=== PATIENT | male | born 1945 | race Asian ===

== ENCOUNTER 2017-08-06 14:18 | Emergency (ER) | payer OTHER ==
[2017-08-06 14:28] VITALS: BP 143/72; BMI 46.2
[2017-08-06] MEDS ORDERED: ACETAMINOPHEN 325 MG TABLET (FP) PO ONE (14:29)
--- NOTE | 2017-08-06 14:31 | PDOC ---
Rapid Medical Evaluation Time Seen by Provider: 08/06/17 14:25 Medical Evaluation: Allergies Allergy/AdvReac Type Severity Reaction Status Date / Time apple [Apple] Allergy Itching Verified 05/03/15 09:05 No Known Drug Allergies Allergy Verified 05/03/15 09:05 tangerines Allergy Swelling Uncoded 05/03/15 09:05 I have performed a brief in-person evaluation of this patient. The patient presents with a chief complaint of: cough x 2 days Pertinent physical exam findings: fever, dry cough, expiratory wheezing right anterior field. rhonchi b/l posterior lung bases. I have ordered the following: Influenza, CXR, labs, duoneb The patient will proceed to the ED for further evaluation. Discharge Disposition - Referrals Referrals: Evans Navarro MD [Primary Care Provider] - - Patient Instructions - Post Discharge Activity
[2017-08-06 15:17] LABS: BASO % 0.4 % (0-2.0); EOS % 2.1 % (0-4.5); HEMATOCRIT 38.3 % (35.4-49); HEMOGLOBIN 12.4 GM/dL (11.7-16.9); LYMPH % 18.4 % (8-40); MCH 29.8 pg (25.7-33.7); MCHC 32.5 g/dl (32.0-35.9); MEAN CELL VOLUME 91.9 fl (80-96); MEAN PLT VOLUME 7.9 fl (7.5-11.1); MONO % 10.4 % (3.8-10.2); NEUT % 68.7 % (42.8-82.8); PLATELET COUNT 192 K/MM3 (134-434); RBC 4.16 M/mm3 (4.00-5.60); RDW 13.9 % (11.9-15.9); WHITE BLOOD COUNT 7.5 K/mm3 (4.0-10.0)
[2017-08-06 15:57] LABS: ALBUMIN 3.7 g/dl (3.4-5.0); ANION GAP 11 (8-16); BLOOD UREA NITROGEN 13 mg/dL (7-18); CALCIUM 8.2 mg/dL (8.5-10.1); CHLORIDE 97 mmol/L (98-107); CO2 24 mmol/L (21-32); CREATININE 1.2 mg/dL (0.7-1.3); GLUCOSE,RANDOM 252 mg/dL (74-106); POTASSIUM 4.4 mmol/L (3.5-5.1); SGOT/AST 25 U/L (15-37); SGPT/ALT 28 U/L (12-78); SODIUM 132 mmol/L (136-145)
[2017-08-06 15:58] LABS: ALK PHOS 71 U/L (45-117); BILIRUBIN,TOTAL 1.2 mg/dL (0.2-1.0)
[2017-08-06] MEDS: ALBUTEROL SO4 2.5/IPRATROPIUM 0.5 INH SOL 3 ML VIAL.NEB. NEB SCH ×4 (18:00→22:08)
[2017-08-06] MEDS ORDERED: ALBUTEROL SO4 2.5/IPRATROPIUM 0.5 INH SOL 3 ML VIAL.NEB. NEB ONE (18:43)
[2017-08-06 18:54] VITALS: PULSE 82
[2017-08-06] MEDS ORDERED: SODIUM CHLORIDE 1,000 ML IV STA ×2 (19:28→22:51)
[2017-08-06] MEDS ORDERED: CEFTRIAXONE 1 GM in DEXTROSE 5%-WATER - 100 ML IVPB ONE (19:29)
--- NOTE | 2017-08-06 19:38 | PDOC ---
History of Present Illness - General Chief Complaint: Respiratory Stated Complaint: COUGH Time Seen by Provider: 08/06/17 14:25 History Source: Patient - History of Present Illness Initial Comments: 08/06/17 21:17 72-year-old male complaining of chest congestion, fever, cough and wheezing for 3 days. Patient has a past medical history of diabetes. as per patient one week ago completed a Z-Celestine for similar symptoms and throat pain. Denies chest pain, diaphoresis, dizziness, nausea, vomiting, diarrhea, abdominal pain, urinary symptoms.no sick contact. Past History - Past Medical History Allergies/Adverse Reactions: Allergies Allergy/AdvReac Type Severity Reaction Status Date / Time apple [Apple] Allergy Itching Verified 08/06/17 14:28 No Known Drug Allergies Allergy Verified 08/06/17 14:28 tangerines Allergy Swelling Uncoded 08/06/17 14:28 Home Medications: Ambulatory Orders Aspirin [ASA -] 81 mg PO DAILY 09/20/13 Atorvastatin Ca [Lipitor] 20 mg PO HS 09/20/13 Glyburide/Metformin HCl [Glyburide-Metformin 5-500 mg] 1 each PO HS 09/20/13 Levothyroxine [Synthroid -] 100 mcg PO DAILY 09/20/13 Lisinopril [Prinivil] 10 mg PO DAILY 09/20/13 Sitagliptin Phosphate [Januvia] 100 mg PO HS 09/20/13 Azithromycin 250 mg PO DAILY #4 tablet 05/03/15 Albuterol Sulfate Inhaler - [Ventolin HFA Inhaler -] 1 - 2 inh PO Q4H PRN #1 inhaler 08/07/17 Amoxicillin/Potassium Clav [Augmentin 875-125 Tablet] 1 each PO BID #20 tablet 08/07/17 Anemia: No Asthma: No Cancer: No Cardiac Disorders: No CVA: No COPD: No CHF: No Dementia: No Diabetes: Yes GI Disorders: No Disorders: No HTN: Yes Hypercholesterolemia: Yes Liver Disease: No Seizures: No Thyroid Disease: No - Surgical History Abdominal Surgery: Yes (INGUINAL HERNIA REPAIR) Appendectomy: No Cardiac Surgery: No Cholecystectomy: No Lung Surgery: No Neurologic Surgery: No Orthopedic Surgery: Yes (LEFT SHOULDER ARTHROSCOPY 2010) - Suicide/Smoking/Psychosocial Hx Smoking History: Never smoked Have you smoked in the past 12 months: No Hx Alcohol Use: No Drug/Substance Use Hx: No Substance Use Type: None Hx Substance Use Treatment: No Review of Systems - Review of Systems Able to Perform ROS?: Yes Is the patient limited [place] proficient: No Constitutional: Yes: Fever Respiratory: Yes: Cough, Wheezing, Productive cough *Physical Exam - Vital Signs Last Vital Signs Temp Pulse Resp BP Pulse Ox 101.0 F H 82 20 143/72 100 08/06/17 14:23 08/06/17 18:30 08/06/17 14:23 08/06/17 14:23 08/06/17 18:30 - Physical Exam General Appearance: Yes: Appropriately Dressed Respiratory/Chest: positive: Rales, Rhonchi Cardiovascular: positive: Tachycardia Gastrointestinal/Abdominal: positive: Normal Bowel Sounds, Soft Extremity: positive: Normal Capillary Refill, Normal Inspection, Normal Range of Motion Integumentary: positive: Normal Color, Dry, Warm Neurologic: positive: Fully Oriented, Alert, Normal Mood/Affect Heart Score/ECG Review - History History: Slightly suspicious - Electrocardiogram EKG: Normal - Age Age: >/= 65 - Risk Factors Risk Factors Heart Score: Yes Hx Diabetes Based on the list above the patient has:: 1-2 risk factors - Troponin Troponin: </= normal limit - Score Heart Score - Total: 3 - ECG Intrepretation Rhythm: Regular Rhythm Comment:: 08/06/17 22:54 NSR: 95, right bundle branch block. ED Treatment Course - LABORATORY CBC & Chemistry Diagram: 08/06/17 15:00 08/06/17 19:42 - ADDITIONAL ORDERS Additional order review: Laboratory Results 08/06/17 08/06/17 15:00 15:00 Sodium 132 L Potassium 4.4 Chloride 97 L Carbon Dioxide 24 Anion Gap 11 BUN 13 Creatinine 1.2 D Creat Clearance w eGFR 59.18 Random Glucose 252 H D Lactic Acid 2.3 H* Calcium 8.2 L Total Bilirubin 1.2 H AST 25 D ALT 28 Alkaline Phosphatase 71 Total Protein 7.0 Albumin 3.7 08/06/17 14:30 Influenza Types A,B Antigen (REAL) - Final Nasopharyngeal Swab - Final 08/06/17 15:00 RBC 4.16 MCV 91.9 MCHC 32.5 RDW 13.9 MPV 7.9 Neutrophils % 68.7 Lymphocytes % 18.4 D Monocytes % 10.4 H Eosinophils % 2.1 Basophils % 0.4 - Medications Given in the ED: ED Medications Discontinued Medications Generic Name Dose Route Start Last Admin Trade Name Freq PRN Reason Stop Dose Admin Acetaminophen 650 mg 08/06/17 14:29 08/06/17 14:32 Tylenol - PO 08/06/17 14:30 650 mg ONCE ONE Administration Albuterol/Ipratropium 1 amp 08/06/17 14:45 08/06/17 18:51 Duoneb - NEB 08/06/17 15:31 1 amp Q15M DANIELLE Administration Progress Note - Progress Note Progress Note: A: fever/ bronchitis, elevated lactic acid CBC CMP Blood culture ua urine culture chest xray: increased marking. Medical Decision Making - Medical Decision Making 08/06/17 23:07 Repeat LActic acidosis: 2.4 will start IVF and reevaluate. 08/07/17 01:26 lactic acidosis repeated : 2.0. will dc/ home. *DC/Admit/Observation/Transfer Diagnosis at time of Disposition: Bronchitis, Lactic acidosis - Discharge Dispostion Disposition: HOME - Prescriptions Prescriptions: Albuterol Sulfate Inhaler - [Ventolin HFA Inhaler -] 1 - 2 inh PO Q4H PRN #1 inhaler PRN Reason: Wheezing Amoxicillin/Potassium Clav [Augmentin 875-125 Tablet] 1 each PO BID #20 tablet - Referrals Referrals: Evans Navarro MD [Primary Care Provider] - - Patient Instructions Printed Discharge Instructions: DI for Acute Bronchitis Additional Instructions: follow up with your doctor as soon as possible. take albuterol IH every 6 hours as needed for cough and wheezing take augmentin as prescribed. follow up with your doctor as soon as possible. return to the ER if symptoms worsen. - Post Discharge Activity
[2017-08-06] MEDS ORDERED: CEFTRIAXONE 1 GM/50 ML BAG ONE (19:55)
[2017-08-06] MEDS ORDERED: IBUPROFEN 600 MG TABLET (FP) PO ONE ×2 (19:57→19:58)
[2017-08-06 19:59] LABS: VENOUS PC02 52.7 mmHg (38-52); VENOUS PH 7.31 (7.32-7.42); VENOUS PO2 21.7 mmHg (28-48)
--- NOTE | 2017-08-06 20:13 | PDOC ---
*Physical Exam - Vital Signs Last Vital Signs Temp Pulse Resp BP Pulse Ox 101.0 F H 82 20 143/72 100 08/06/17 14:23 08/06/17 18:30 08/06/17 14:23 08/06/17 14:23 08/06/17 18:30 ED Treatment Course - LABORATORY CBC & Chemistry Diagram: 08/06/17 15:00 08/06/17 19:42 - ADDITIONAL ORDERS Additional order review: Laboratory Results 08/06/17 08/06/17 08/06/17 19:40 15:00 15:00 VBG pH 7.31 L POC VBG pCO2 52.7 H POC VBG pO2 21.7 L Mixed VBG HCO3 26.0 H Sodium 132 L Potassium 4.4 Chloride 97 L Carbon Dioxide 24 Anion Gap 11 BUN 13 Creatinine 1.2 D Creat Clearance w eGFR 59.18 Random Glucose 252 H D Lactic Acid 2.3 H* Calcium 8.2 L Total Bilirubin 1.2 H AST 25 D ALT 28 Alkaline Phosphatase 71 Total Protein 7.0 Albumin 3.7 08/06/17 14:30 Influenza Types A,B Antigen (REAL) - Final Nasopharyngeal Swab - Final 08/06/17 15:00 RBC 4.16 MCV 91.9 MCHC 32.5 RDW 13.9 MPV 7.9 Neutrophils % 68.7 Lymphocytes % 18.4 D Monocytes % 10.4 H Eosinophils % 2.1 Basophils % 0.4 - Medications Given in the ED: ED Medications Discontinued Medications Generic Name Dose Route Start Last Admin Trade Name Freq PRN Reason Stop Dose Admin Acetaminophen 650 mg 08/06/17 14:29 08/06/17 14:32 Tylenol - PO 08/06/17 14:30 650 mg ONCE ONE Administration Albuterol/Ipratropium 1 amp 08/06/17 14:45 08/06/17 18:51 Duoneb - NEB 08/06/17 15:31 1 amp Q15M DANIELLE Administration Ceftriaxone Sodium 1 gm/ 100 mls @ 200 mls/hr 08/06/17 19:29 08/06/17 20:05 Dextrose IVPB 08/06/17 19:58 200 mls/hr ONCE ONE Administration Medical Decision Making - Medical Decision Making 08/06/17 20:12 agree with care from ENEDINA Trevizo *DC/Admit/Observation/Transfer Diagnosis at time of Disposition: Bronchitis, Lactic acidosis - Discharge Dispostion Disposition: HOME - Prescriptions Prescriptions: Albuterol Sulfate Inhaler - [Ventolin HFA Inhaler -] 1 - 2 inh PO Q4H PRN #1 inhaler PRN Reason: Wheezing Amoxicillin/Potassium Clav [Augmentin 875-125 Tablet] 1 each PO BID #20 tablet - Referrals Referrals: Evans Navarro MD [Primary Care Provider] - - Patient Instructions Printed Discharge Instructions: DI for Acute Bronchitis Additional Instructions: follow up with your doctor as soon as possible. take albuterol IH every 6 hours as needed for cough and wheezing take augmentin as prescribed. follow up with your doctor as soon as possible. return to the ER if symptoms worsen. - Post Discharge Activity
[2017-08-06 20:15] LABS: INR 1.14 (0.82-1.09); PROTHROMBIN TIME (PATIENT) 12.9 SEC (9.98-11.88)
[2017-08-06 20:16] LABS: ALBUMIN 4.2 g/dl (3.4-5.0); ANION GAP 10 (8-16); BILIRUBIN,TOTAL 1.2 mg/dL (0.2-1.0); BLOOD UREA NITROGEN 13 mg/dL (7-18); CALCIUM 8.5 mg/dL (8.5-10.1); CHLORIDE 98 mmol/L (98-107); CO2 25 mmol/L (21-32); CREATININE 1.1 mg/dL (0.7-1.3); GLUCOSE,RANDOM 138 mg/dL (74-106); POTASSIUM 3.6 mmol/L (3.5-5.1); SGOT/AST 24 U/L (15-37); SGPT/ALT 33 U/L (12-78); SODIUM 133 mmol/L (136-145)
[2017-08-06 20:18] LABS: ACTIVATED PTT 31.3 SECONDS (26.9-34.4)
[2017-08-06 20:19] LABS: ALK PHOS 79 U/L (45-117)
[2017-08-06 20:50] VITALS: TEMP 100.1
[2017-08-07] MEDS ORDERED: ALBUTEROL SO4 2.5/IPRATROPIUM 0.5 INH SOL 3 ML VIAL.NEB. NEB ONE (01:02)
--- NOTE | 2017-08-07 12:30 | EKG ---
Test Reason : Blood Pressure : / mmHG Vent. Rate : 093 BPM Atrial Rate : 093 BPM P-R Int : 184 ms QRS Dur : 124 ms QT Int : 374 ms P-R-T Axes : 053 -33 050 degrees QTc Int : 465 ms NORMAL SINUS RHYTHM LEFT AXIS DEVIATION RIGHT BUNDLE BRANCH BLOCK ABNORMAL ECG WHEN COMPARED WITH ECG OF 03-MAY-2015 09:29, RIGHT BUNDLE BRANCH BLOCK IS NOW PRESENT Confirmed by DAVID NOE MD ([id number]) on 08/07/2017 12:30:01 PM Referred By: Confirmed By:DAVID NOE MD
== END 2017-08-07 01:00 | disposition home or self-care (01) ==
LOC: JER 14:18
PROC: 3E0F7GC Introduction of Other Therapeutic Substance into Respiratory Tract, Via Natural or Artificial Opening (ICD-10-PCS; principal; 2017-08-06)
PROC: 3E0337Z Introduction of Electrolytic and Water Balance Substance into Peripheral Vein, Percutaneous Approach (ICD-10-PCS; 2017-08-06)
PROC: 3E03329 Introduction of Other Anti-infective into Peripheral Vein, Percutaneous Approach (ICD-10-PCS; 2017-08-06)
DX: J20.9 Acute bronchitis, unspecified (principal); E87.2 Acidosis
CPT/HCPCS: 36415; 71046-TC; 80053; 82550; 82553; 82803; 83605; 84484; 85025; 85610; 85730; 87040; 87804; 93005; 93010; 99284-25

== ENCOUNTER 2018-05-03 20:41 | Emergency (ER) | payer OTHER ==
[2018-05-03 21:12] VITALS: BP 136/66; PULSE 72; BMI 23.0
[2018-05-04 00:38] LABS: BASO % 0.3 % (0-2.0); EOS % 2.2 % (0-4.5); HEMATOCRIT 39.5 % (35.4-49); HEMOGLOBIN 13.1 GM/dL (11.7-16.9); LYMPH % 37.4 % (8-40); MCH 30.6 pg (25.7-33.7); MCHC 33.2 g/dl (32.0-35.9); MEAN CELL VOLUME 92.3 fl (80-96); MEAN PLT VOLUME 7.6 fl (7.5-11.1); NEUT % 54.1 % (42.8-82.8); PLATELET COUNT 232 K/MM3 (134-434); RBC 4.28 M/mm3 (4.00-5.60); RDW 13.7 % (11.9-15.9)
--- NOTE | 2018-05-04 00:52 | PDOC ---
Attending Attestation - Resident Resident Name: Reese Ledezma - ED Attending Attestation I have performed the following: I have examined & evaluated the patient, The case was reviewed & discussed with the resident, I agree w/resident's findings & plan - HPI HPI: 05/04/18 00:51 Pt comes with BP elevation. That he noted for the past 2 days. He was on one of his daily walks 3 miles, and stopped at the pharmacy and his BP was elevated. 05/04/18 01:44 Pt states that he was at a frien'd home and he felt like he has high BP; BP was 180s. Pt appears flushed; he states that his friend was telling him the same. - Physicial Exam PE: 05/04/18 00:52 Agree with resident's assessment and exam. - Medical Decision Making 05/04/18 00:57 WBC is normal 05/04/18 01:45 Cardiac enzymes normal. I will add on TSH; pt is on synthroid 05/04/18 06:37 Pt will be asked to follow with outpatient cardio Heart Score/ECG Review - History History: Slightly suspicious - Age Age: >/= 65 - Risk Factors Risk Factors Heart Score: Yes Hx Hypertension, Yes Positive family hx of cardiac disease Based on the list above the patient has:: >/=3 risk factors or Hx atherosclerotic disease - Troponin Troponin: </= normal limit - QRS Widened: IVCD (LAFB) - ST and T Early Repolarization: No Non Specific ST-T Wave changes: No - ECG Impressions Normal ECG: Yes Non-specific ST Elevation: No Ischemic Changes: No
[2018-05-04 01:08] LABS: ALBUMIN 4.1 g/dl (3.4-5.0); ALK PHOS 68 U/L (45-117); ANION GAP 7 MMOL/L (8-16); BILIRUBIN,TOTAL 0.9 mg/dL (0.2-1); BLOOD UREA NITROGEN 18 mg/dL (7-18); CHLORIDE 102 mmol/L (98-107); CO2 29 mmol/L (21-32); CREATININE 0.9 mg/dL (0.55-1.3); GLUCOSE,RANDOM 133 mg/dL (74-106); POTASSIUM 4.5 mmol/L (3.5-5.1); SGOT/AST 25 U/L (15-37); SGPT/ALT 31 U/L (13-61); SODIUM 138 mmol/L (136-145); TOT PROT 7.6 g/dl (6.4-8.2)
--- NOTE | 2018-05-04 01:45 | PDOC ---
History of Present Illness - General Chief Complaint: Blood Pressure Problem Stated Complaint: HIGH BLOOD PRESSURE/SWEATING Time Seen by Provider: 05/03/18 23:49 History Source: Patient Exam Limitations: No Limitations - History of Present Illness Initial Comments: 05/04/18 01:42 72m with pmf of DM2 and htn presents with episode diaphoresis ealier today. After it happened the patient went to check his blood pressure which happened to be elevated in the 180's. Come to the Ed where it was found to be normal. No other complains, Past History - Past Medical History Allergies/Adverse Reactions: Allergies Allergy/AdvReac Type Severity Reaction Status Date / Time apple [Apple] Allergy Itching Verified 05/03/18 21:10 No Known Drug Allergies Allergy Verified 05/03/18 21:10 tangerines Allergy Swelling Uncoded 05/03/18 21:10 Home Medications: Ambulatory Orders Aspirin [ASA -] 81 mg PO DAILY 09/20/13 Atorvastatin Ca [Lipitor] 20 mg PO HS 09/20/13 Glyburide/Metformin HCl [Glyburide-Metformin 5-500 mg] 1 each PO HS 09/20/13 Levothyroxine [Synthroid -] 100 mcg PO DAILY 09/20/13 Lisinopril [Prinivil] 10 mg PO DAILY 09/20/13 Sitagliptin Phosphate [Januvia] 100 mg PO HS 09/20/13 Azithromycin 250 mg PO DAILY #4 tablet 05/03/15 Albuterol Sulfate Inhaler - [Ventolin HFA Inhaler -] 1 - 2 inh PO Q4H PRN #1 inhaler 08/07/17 Amoxicillin/Potassium Clav [Augmentin 875-125 Tablet] 1 each PO BID #20 tablet 08/07/17 Anemia: No Asthma: No Cancer: No Cardiac Disorders: No CVA: No COPD: No CHF: No Dementia: No Diabetes: Yes GI Disorders: No Disorders: No HTN: Yes Hypercholesterolemia: Yes Liver Disease: No Seizures: No Thyroid Disease: No - Surgical History Abdominal Surgery: Yes (INGUINAL HERNIA REPAIR) Appendectomy: No Cardiac Surgery: No Cholecystectomy: No Lung Surgery: No Neurologic Surgery: No Orthopedic Surgery: Yes (LEFT SHOULDER ARTHROSCOPY 2010) - Suicide/Smoking/Psychosocial Hx Smoking History: Never smoked Have you smoked in the past 12 months: No Hx Alcohol Use: No Drug/Substance Use Hx: No Substance Use Type: None Hx Substance Use Treatment: No *Physical Exam - Vital Signs Last Vital Signs Temp Pulse Resp BP Pulse Ox 98 F 72 18 136/66 99 05/03/18 21:10 05/03/18 21:10 05/03/18 21:10 05/03/18 21:10 05/03/18 21:10 ED Treatment Course - LABORATORY CBC & Chemistry Diagram: 05/04/18 00:30 05/04/18 00:30 - ADDITIONAL ORDERS Additional order review: Laboratory Results 05/04/18 05/04/18 00:30 00:30 Sodium 138 Potassium 4.5 Chloride 102 Carbon Dioxide 29 Anion Gap 7 L BUN 18 Creatinine 0.9 Creat Clearance w eGFR > 60 Random Glucose 133 H Calcium 9.0 Total Bilirubin 0.9 AST 25 ALT 31 Alkaline Phosphatase 68 Troponin I < 0.02 Total Protein 7.6 Albumin 4.1 05/04/18 00:30 RBC 4.28 MCV 92.3 MCHC 33.2 RDW 13.7 MPV 7.6 Neutrophils % 54.1 D Lymphocytes % 37.4 D Monocytes % 6.0 Eosinophils % 2.2 Basophils % 0.3 - RADIOLOGY Radiology Studies Ordered: Category Date Time Status CHEST PA & LAT [RAD] Stat Radiology 05/04/18 00:16 Taken *DC/Admit/Observation/Transfer Diagnosis at time of Disposition: Bifascicular block - Discharge Dispostion Disposition: HOME Condition at time of disposition: Fair Decision to Admit order: No - Referrals Referrals: Evans Navarro MD [Primary Care Provider] - Cesar Fernandez MD [Staff Physician] - - Patient Instructions Printed Discharge Instructions: DI for Heart Block Additional Instructions: Follow up ishmael with your cardiovascular disease specialist Dr. Fernandez.. Come back to the ER for any new, worsening or concerning symptoms. - Post Discharge Activity
[2018-05-04 02:08] VITALS: TEMP 97.6
--- NOTE | 2018-05-04 02:32 | PDOC ---
*Physical Exam - Vital Signs Last Vital Signs Temp Pulse Resp BP Pulse Ox 97.6 F 72 18 136/66 99 05/04/18 02:07 05/03/18 21:10 05/03/18 21:10 05/03/18 21:10 05/03/18 21:10 ED Treatment Course - LABORATORY CBC & Chemistry Diagram: 05/04/18 00:30 05/04/18 00:30 - ADDITIONAL ORDERS Additional order review: Laboratory Results 05/04/18 05/04/18 00:30 00:30 Sodium 138 Potassium 4.5 Chloride 102 Carbon Dioxide 29 Anion Gap 7 L BUN 18 Creatinine 0.9 Creat Clearance w eGFR > 60 Random Glucose 133 H Calcium 9.0 Total Bilirubin 0.9 AST 25 ALT 31 Alkaline Phosphatase 68 Troponin I < 0.02 Total Protein 7.6 Albumin 4.1 TSH 0.99 Free T4 1.21 H 05/04/18 00:30 RBC 4.28 MCV 92.3 MCHC 33.2 RDW 13.7 MPV 7.6 Neutrophils % 54.1 D Lymphocytes % 37.4 D Monocytes % 6.0 Eosinophils % 2.2 Basophils % 0.3 - RADIOLOGY Radiology Studies Ordered: Category Date Time Status CHEST PA & LAT [RAD] Stat Radiology 05/04/18 00:16 Taken Medical Decision Making - Medical Decision Making 05/04/18 02:32 EKG: New onset Bifascicular block *DC/Admit/Observation/Transfer Diagnosis at time of Disposition: Bifascicular block - Discharge Dispostion Disposition: HOME Condition at time of disposition: Fair - Referrals Referrals: Cesar Fernandez MD [Staff Physician] - Evans Navarro MD [Primary Care Provider] - - Patient Instructions Printed Discharge Instructions: DI for Heart Block Additional Instructions: Follow up ishmael with your industrial relations representative Dr. Fernandez.. Come back to the ER for any new, worsening or concerning symptoms. - Post Discharge Activity
--- NOTE | 2018-05-05 10:46 | EKG ---
Test Reason : Blood Pressure : / mmHG Vent. Rate : 062 BPM Atrial Rate : 062 BPM P-R Int : 206 ms QRS Dur : 124 ms QT Int : 418 ms P-R-T Axes : 055 -50 036 degrees QTc Int : 424 ms NORMAL SINUS RHYTHM RIGHT BUNDLE BRANCH BLOCK LEFT ANTERIOR FASCICULAR BLOCK BIFASCICULAR BLOCK ABNORMAL ECG WHEN COMPARED WITH ECG OF 06-AUG-2017 21:28, VENT. RATE HAS DECREASED BY 31 BPM LEFT ANTERIOR FASCICULAR BLOCK IS NOW PRESENT Confirmed by Griffin Chaudhary MD ([id number]) on 05/05/2018 10:46:29 AM Referred By: Confirmed By:Griffin Chaudhary MD
== END 2018-05-04 02:40 | disposition home or self-care (01) ==
LOC: JER 20:41
DX: I45.2 Bifascicular block (principal); I10 Essential (primary) hypertension; E11.9 Type 2 diabetes mellitus without complications; Z79.84 Long term (current) use of oral hypoglycemic drugs; E78.00 Pure hypercholesterolemia, unspecified
CPT/HCPCS: 36415; 71046-TC-FY; 80053; 84439; 84443; 84484; 85025; 93005; 93010; 99282-25

== ENCOUNTER 2022-05-05 07:24 | Inpatient (IN) | payer OTHER ==
[2022-05-05] MEDS ORDERED: ONDANSETRON 4 MG/2 ML VIAL IVPUSH ONE (08:01)
[2022-05-05] MEDS ORDERED: ACETAMINOPHEN 1000 MG/100 ML BAG IVPB ONE (08:01)
[2022-05-05] MEDS ORDERED: ONDANSETRON 4 MG/2 ML VIAL ONE (08:03)
[2022-05-05] MEDS ORDERED: ACETAMINOPHEN INJECTION 100 ML IVPB ONE (08:03)
[2022-05-05 08:38] LABS: BASO % 0.3 % (0-2.0); EOS % 2.3 % (0-4.5); HEMATOCRIT 37.9 % (35.4-49); HEMOGLOBIN 12.8 GM/dL (11.7-16.9); LYMPH % 30.3 % (8-40); MCH 31.2 pg (25.7-33.7); MCHC 33.7 g/dl (32.0-35.9); MEAN CELL VOLUME 92.5 fl (80-96); MEAN PLT VOLUME 7.2 fl (7.5-11.1); MONO % 7.5 % (3.8-10.2); NEUT % 59.6 % (42.8-82.8); PLATELET COUNT 260 10^3/uL (134-434); RDW 14.3 % (11.9-15.9); WHITE BLOOD COUNT 8.3 K/mm3 (4.0-10.0)
[2022-05-05 08:43] LABS: INR 1.09 (0.83-1.09); PROTHROMBIN TIME (PATIENT) 12.6 SEC (9.7-13.0)
[2022-05-05 08:46] LABS: ACTIVATED PTT 29.8 SECONDS (25.2-36.5)
[2022-05-05 09:04] LABS: ALBUMIN 3.9 g/dl (3.4-5.0); CALCIUM 9.1 mg/dL (8.5-10.1)
[2022-05-05 09:06] LABS: BLOOD UREA NITROGEN 19.3 mg/dL (7-18)
[2022-05-05 09:08] LABS: CREATININE 1.1 mg/dL (0.55-1.3)
[2022-05-05 09:09] LABS: BILIRUBIN,TOTAL 0.6 mg/dL (0.2-1); TOT PROT 7.1 g/dl (6.4-8.2)
[2022-05-05 13:01] LABS: N-TERMINAL BNP 34.3 pg/ml (5-450)
[2022-05-05] MEDS ORDERED: ACETAMINOPHEN 1000 MG/100 ML BAG IVPB PRN (16:16)
[2022-05-05] MEDS ORDERED: ONDANSETRON 4 MG/2 ML VIAL IVPUSH PRN (16:16)
[2022-05-05] MEDS ORDERED: INSULIN (NOVOLOG) ASPART 100 UNITS/ML 10ML VIAL ONE (17:42)
[2022-05-05] MEDS: INSULIN SLIDING SCALE (NOVOLOG) 1 VIAL SQ SCH ×2 (17:45→21:37)
[2022-05-05] MEDS: DEXTROSE 5%-0.45% SALINE 1,000 ML IV SCH (17:46)
[2022-05-05 18:16] VITALS: BMI 21.7
[2022-05-05] MEDS: NEBIVOLOL 5 MG TABLET (FP) PO SCH (21:32)
[2022-05-05] MEDS: ATORVASTATIN CA 20 MG TABLET (FP) PO SCH (21:33)
[2022-05-06] MEDS: LEVOTHYROXINE NA 75 MCG TABLET (FP) PO SCH (06:20)
[2022-05-06] MEDS: INSULIN SLIDING SCALE (NOVOLOG) 1 VIAL SQ SCH ×4 (06:25→22:09)
[2022-05-06] MEDS ORDERED: LEVOTHYROXINE NA 75 MCG TABLET (FP) PO SCH (07:00)
[2022-05-06] MEDS ORDERED: LEVOTHYROXINE NA 100 MCG TABLET (FP) PO SCH (07:00)
[2022-05-06] MEDS: DEXTROSE 5%-0.45% SALINE 1,000 ML IV SCH ×3 (08:00→19:06)
[2022-05-06 08:32] LABS: BASO % 0.3 % (0-2.0); EOS % 2.6 % (0-4.5); HEMATOCRIT 39.8 % (35.4-49); HEMOGLOBIN 12.9 GM/dL (11.7-16.9); LYMPH % 34.5 % (8-40); MCH 29.9 pg (25.7-33.7); MCHC 32.4 g/dl (32.0-35.9); MEAN CELL VOLUME 92.3 fl (80-96); MEAN PLT VOLUME 7.6 fl (7.5-11.1); MONO % 6.8 % (3.8-10.2); NEUT % 55.8 % (42.8-82.8); PLATELET COUNT 296 10^3/uL (134-434); RDW 13.9 % (11.9-15.9); WHITE BLOOD COUNT 7.4 K/mm3 (4.0-10.0)
[2022-05-06 08:57] LABS: BLOOD UREA NITROGEN 10.7 mg/dL (7-18); CALCIUM 8.8 mg/dL (8.5-10.1)
[2022-05-06 08:58] LABS: ALBUMIN 3.5 g/dl (3.4-5.0)
[2022-05-06] MEDS: NEBIVOLOL 5 MG TABLET (FP) PO SCH (08:59)
[2022-05-06 09:03] LABS: BILIRUBIN,TOTAL 1.5 mg/dL (0.2-1); TOT PROT 6.8 g/dl (6.4-8.2)
[2022-05-06] MEDS: LISINOPRIL 10 MG TABLET PO SCH (09:56)
[2022-05-06] MEDS ORDERED: ENOXAPARIN NA (PORCINE) 40 MG/0.4 ML DISP.SYRIN SQ SCH (10:00)
[2022-05-06] MEDS ORDERED: ASPIRIN 81 MG CHEWABLE TABLETS PO SCH (10:00)
[2022-05-06] MEDS ORDERED: INSULIN (NOVOLOG) ASPART 100 UNITS/ML 10ML VIAL ONE (11:31)
[2022-05-06] MEDS: ATORVASTATIN CA 20 MG TABLET (FP) PO SCH (22:07)
[2022-05-07] MEDS: INSULIN SLIDING SCALE (NOVOLOG) 1 VIAL SQ SCH ×4 (07:08→21:34)
[2022-05-07] MEDS: LEVOTHYROXINE NA 75 MCG TABLET (FP) PO SCH (07:09)
[2022-05-07 08:56] LABS: BASO % 0.5 % (0-2.0); HEMATOCRIT 36.4 % (35.4-49); HEMOGLOBIN 12.4 GM/dL (11.7-16.9); LYMPH % 31.2 % (8-40); MCH 31.3 pg (25.7-33.7); MEAN CELL VOLUME 92.2 fl (80-96); MEAN PLT VOLUME 7.2 fl (7.5-11.1); MONO % 8.6 % (3.8-10.2); NEUT % 56.7 % (42.8-82.8); PLATELET COUNT 262 10^3/uL (134-434); RBC 3.94 M/mm3 (4.00-5.60); RDW 13.9 % (11.9-15.9); WHITE BLOOD COUNT 6.9 K/mm3 (4.0-10.0)
[2022-05-07] MEDS: DEXTROSE 5%-0.45% SALINE 1,000 ML IV SCH (09:17)
[2022-05-07 09:27] LABS: ALBUMIN 3.4 g/dl (3.4-5.0); BLOOD UREA NITROGEN 7.7 mg/dL (7-18); CALCIUM 8.9 mg/dL (8.5-10.1)
[2022-05-07 09:31] LABS: BILIRUBIN,TOTAL 1.3 mg/dL (0.2-1); TOT PROT 6.4 g/dl (6.4-8.2)
[2022-05-07] MEDS: NEBIVOLOL 5 MG TABLET (FP) PO SCH (09:56)
[2022-05-07] MEDS: LISINOPRIL 10 MG TABLET PO SCH (09:56)
[2022-05-07] MEDS ORDERED: MIDAZOLAM HCL 2 MG/2 ML SINGLE DOSE VIAL ONE (12:16)
[2022-05-07] MEDS ORDERED: BUPIVACAINE HCL/PF 0.5% (5MG/ML) 10 ML VIAL ONE (12:23)
[2022-05-07] MEDS ORDERED: ceFAZolin SODIUM 1 GM VIAL IVPB ONE (12:55)
[2022-05-07] MEDS ORDERED: NEOSTIGMINE METHYLSULFATE 0.5 MG/ML - 10 ML MDV ONE (14:11)
[2022-05-07] MEDS ORDERED: ONDANSETRON 4 MG/2 ML VIAL ONE (14:11)
[2022-05-07] MEDS ORDERED: KETOROLAC TROMETHAMINE 30 MG/1 ML VIAL ONE (14:11)
[2022-05-07] MEDS ORDERED: GLYCOPYRROLATE 0.2 MG/1 ML VIAL ONE (14:11)
[2022-05-07] MEDS ORDERED: LIDOCAINE HCL/PF (2%) 40 MG/2 ML VIAL ONE (14:11)
[2022-05-07] MEDS ORDERED: ceFAZolin SODIUM 1 GM VIAL ONE (14:11)
[2022-05-07] MEDS ORDERED: BUPIVACAINE HCL/PF 0.5% (5 MG/ML) 30 ML VIAL IJ ONE (14:12)
[2022-05-07] MEDS ORDERED: DEXTROSE 5%-0.45% SALINE 1,000 ML IV SCH (14:44)
[2022-05-07] MEDS ORDERED: ONDANSETRON 4 MG/2 ML VIAL IVPUSH PRN ×2 (14:44→14:52)
[2022-05-07] MEDS ORDERED: traMADol HCL 50 MG TABLET PO PRN (14:44)
[2022-05-07] MEDS ORDERED: LACTATED RINGERS SOLUTION 1,000 ML IV SCH (15:00)
[2022-05-07] MEDS: ACETAMINOPHEN 1000 MG/100 ML BAG IVPB SCH (21:26)
[2022-05-07] MEDS ORDERED: ATORVASTATIN CA 20 MG TABLET (FP) PO SCH (22:00)
[2022-05-08] MEDS: ACETAMINOPHEN 1000 MG/100 ML BAG IVPB SCH ×2 (02:33→09:23)
[2022-05-08] MEDS: INSULIN SLIDING SCALE (NOVOLOG) 1 VIAL SQ SCH ×2 (06:21→11:41)
[2022-05-08] MEDS ORDERED: LEVOTHYROXINE NA 75 MCG TABLET (FP) PO SCH (07:00)
[2022-05-08 09:24] VITALS: RESP 18
[2022-05-08] MEDS ORDERED: NEBIVOLOL 5 MG TABLET (FP) PO SCH (10:00)
[2022-05-08] MEDS ORDERED: LISINOPRIL 10 MG TABLET PO SCH (10:00)
[2022-05-08 10:39] LABS: BASO % 0.3 % (0-2.0); EOS % 1.2 % (0-4.5); HEMATOCRIT 38.9 % (35.4-49); HEMOGLOBIN 12.5 GM/dL (11.7-16.9); LYMPH % 27.4 % (8-40); MCH 29.8 pg (25.7-33.7); MEAN CELL VOLUME 93.2 fl (80-96); MEAN PLT VOLUME 7.5 fl (7.5-11.1); MONO % 7.4 % (3.8-10.2); NEUT % 63.7 % (42.8-82.8); PLATELET COUNT 270 10^3/uL (134-434); RBC 4.17 M/mm3 (4.00-5.60); RDW 14.2 % (11.9-15.9); WHITE BLOOD COUNT 10.3 K/mm3 (4.0-10.0)
[2022-05-08 11:03] LABS: ALBUMIN 3.5 g/dl (3.4-5.0); BLOOD UREA NITROGEN 11.4 mg/dL (7-18); CALCIUM 8.8 mg/dL (8.5-10.1)
[2022-05-08 11:06] LABS: CREATININE 1.1 mg/dL (0.55-1.3)
[2022-05-08 11:08] LABS: BILIRUBIN,TOTAL 2.1 mg/dL (0.2-1); TOT PROT 6.8 g/dl (6.4-8.2)
[2022-05-08 14:56] VITALS: BP 158/72; PULSE 61; TEMP 98.6
== END 2022-05-08 15:10 | disposition home or self-care (01) | DRG 419 ==
LOC: JER 07:24 → JERBED 10:19 → J8W 16:33
PROVIDERS: ADMIT Family Medicine; ATTEND Family Medicine
PROC: 0FT44ZZ Resection of Gallbladder, Percutaneous Endoscopic Approach (ICD-10-PCS; principal; 2022-05-07 11:30)
DX: K80.12 Calculus of gallbladder with acute and chronic cholecystitis without obstruction (principal); E11.9 Type 2 diabetes mellitus without complications; I10 Essential (primary) hypertension; E03.9 Hypothyroidism, unspecified; R10.11 Right upper quadrant pain; E78.5 Hyperlipidemia, unspecified
CPT/HCPCS: 36415; 71045-TC-FY; 76705-TC; 80053; 82962; 83036; 83690; 83880; 84443; 84484; 85025; 85610; 85730; 86850; 86900; 86901; 88304-TC; 93005; 93010; 94760; 99285-25; C9803-CS; U0003; U0005

== ENCOUNTER 2022-10-06 15:39 | Observation (INO) | payer OTHER ==
[2022-10-06 16:11] VITALS: BMI 22.6
[2022-10-06] MEDS ORDERED: ONDANSETRON 4 MG/2 ML VIAL IVPUSH ONE (16:37)
[2022-10-06] MEDS ORDERED: SODIUM CHLORIDE 0.9% 500 ML INFUS.BAG IV ONE (16:40)
[2022-10-06] MEDS ORDERED: ONDANSETRON 4 MG/2 ML VIAL ONE (16:47)
[2022-10-06 17:03] LABS: BASO % 0.2 % (0-2.0); EOS % 0.6 % (0-4.5); HEMATOCRIT 50.8 % (35.4-49); HEMOGLOBIN 16.8 GM/dL (11.7-16.9); LYMPH % 38.6 % (8-40); MCH 30.3 pg (25.7-33.7); MCHC 33.1 g/dl (32.0-35.9); MEAN CELL VOLUME 91.7 fl (80-96); MEAN PLT VOLUME 7.5 fl (7.5-11.1); MONO % 5.5 % (3.8-10.2); NEUT % 55.1 % (42.8-82.8); PLATELET COUNT 416 10^3/uL (134-434); RBC 5.54 M/mm3 (4.00-5.60); RDW 14.8 % (11.9-15.9); WHITE BLOOD COUNT 10.6 K/mm3 (4.0-10.0)
[2022-10-06 17:19] LABS: CHLORIDE 99 mmol/L (98-107); SODIUM 132 mmol/L (136-145)
[2022-10-06 17:22] LABS: CALCIUM 9.1 mg/dL (8.5-10.1)
[2022-10-06 17:23] LABS: ALBUMIN 3.2 g/dl (3.4-5.0); BLOOD UREA NITROGEN 19.8 mg/dL (7-18); CO2 27 mmol/L (21-32); GLUCOSE,RANDOM 226 mg/dL (74-106); LIPASE 265 U/L (73-393); MAGNESIUM 2.2 mg/dL (1.8-2.4)
[2022-10-06 17:25] LABS: CREATININE 1.8 mg/dL (0.55-1.3); SGOT/AST 75 U/L (15-37); SGPT/ALT 41 U/L (13-61)
[2022-10-06 17:27] LABS: BILIRUBIN,TOTAL 1.1 mg/dL (0.2-1); TOT PROT 7.2 g/dl (6.4-8.2)
[2022-10-06 17:28] LABS: ALK PHOS 75 U/L (45-117)
[2022-10-06 17:57] LABS: ANION GAP 5 MMOL/L (8-16)
[2022-10-06] MEDS ORDERED: SODIUM CHLORIDE 1,000 ML IV STA (19:39)
[2022-10-06 20:33] LABS: CALCIUM 8.7 mg/dL (8.5-10.1)
[2022-10-06 20:34] LABS: BLOOD UREA NITROGEN 21.6 mg/dL (7-18)
[2022-10-06 20:38] LABS: CREATININE 1.5 mg/dL (0.55-1.3)
[2022-10-06 21:21] LABS: CHLORIDE 103 mmol/L (98-107); SODIUM 134 mmol/L (136-145)
[2022-10-06 21:23] LABS: CALCIUM 8.3 mg/dL (8.5-10.1)
[2022-10-06 21:24] LABS: BLOOD UREA NITROGEN 23.8 mg/dL (7-18); CO2 25 mmol/L (21-32); GLUCOSE,RANDOM 207 mg/dL (74-106)
[2022-10-06 21:26] LABS: CREATININE 1.9 mg/dL (0.55-1.3); SGOT/AST 20 U/L (15-37); SGPT/ALT 32 U/L (13-61)
[2022-10-06 21:28] LABS: BILIRUBIN,TOTAL 0.7 mg/dL (0.2-1); TOT PROT 6.1 g/dl (6.4-8.2)
[2022-10-06 21:30] LABS: ALK PHOS 67 U/L (45-117)
[2022-10-06 21:36] LABS: ANION GAP 6 MMOL/L (8-16)
[2022-10-06] MEDS ORDERED: CALCIUM GLUCONATE IN NACL 1 GM/50 ML BAG IVPB ONE (21:38)
[2022-10-06] MEDS ORDERED: INSULIN REGULAR HUMAN 100 UNITS/ML *VIAL IVPUSH ONE (21:39)
[2022-10-06] MEDS ORDERED: ALBUTEROL SO4 HFA INHALER IH ONE ×2 (21:40→23:48)
[2022-10-06] MEDS ORDERED: SODIUM ZIRCONIUM CYCLOSILICATE (LOKELMA) 5 GM PACKET PO ONE (21:41)
[2022-10-06] MEDS ORDERED: SODIUM CHLORIDE 1,000 ML IV SCH ×3 (21:45→23:30)
[2022-10-06] MEDS ORDERED: CALCIUM GLUCONATE 10% - 1,000 MG/10 ML VIAL ONE (21:52)
[2022-10-06] MEDS ORDERED: ATORVASTATIN CA 10 MG TABLET (FP) PO SCH (22:00)
[2022-10-06] MEDS ORDERED: SODIUM ZIRCONIUM CYCLOSILICATE (LOKELMA) 5 GM PACKET ONE (22:09)
[2022-10-06] MEDS ORDERED: ATORVASTATIN CA 10 MG TABLET (FP) ONE (22:14)
[2022-10-06] MEDS: INSULIN SLIDING SCALE (NOVOLOG) 1 VIAL SQ SCH (22:35)
[2022-10-07] MEDS ORDERED: DEXTROSE 50%-WATER 25 GM/50 ML DISP.SYRIN IVPUSH ONE (01:48)
[2022-10-07] MEDS ORDERED: DEXTROSE 50%-WATER 25 GM/50 ML DISP.SYRIN ONE (01:50)
[2022-10-07 02:37] LABS: CALCIUM 7.5 mg/dL (8.5-10.1)
[2022-10-07 02:38] LABS: BLOOD UREA NITROGEN 24.7 mg/dL (7-18)
[2022-10-07 02:42] LABS: CREATININE 1.5 mg/dL (0.55-1.3)
[2022-10-07 06:38] LABS: HEMATOCRIT 32.9 % (35.4-49); MCH 30.3 pg (25.7-33.7); MCHC 33.3 g/dl (32.0-35.9); MEAN CELL VOLUME 90.9 fl (80-96); PLATELET COUNT 268 10^3/uL (134-434); RBC 3.62 M/mm3 (4.00-5.60); RDW 14.3 % (11.9-15.9)
[2022-10-07] MEDS ORDERED: LEVOTHYROXINE NA 75 MCG TABLET (FP) PO SCH (07:00)
[2022-10-07] MEDS ORDERED: HEPARIN NA (PORCINE) 5,000 UNITS/ML 1ML VIAL SQ SCH (07:00)
[2022-10-07 07:29] LABS: ALBUMIN 2.5 g/dl (3.4-5.0); CALCIUM 7.4 mg/dL (8.5-10.1)
[2022-10-07 07:30] LABS: BLOOD UREA NITROGEN 21.2 mg/dL (7-18); MAGNESIUM 1.8 mg/dL (1.8-2.4)
[2022-10-07 07:33] LABS: CREATININE 1.2 mg/dL (0.55-1.3)
[2022-10-07 07:35] LABS: BILIRUBIN,TOTAL 0.6 mg/dL (0.2-1); PHOSPHOROUS 3.4 mg/dL (2.5-4.9); TOT PROT 4.9 g/dl (6.4-8.2)
[2022-10-07 08:08] LABS: PH,URINE 5.5 (5.0-8.0); URINE APPEARANCE CLEAR; URINE BILIRUBIN NEGATIVE (NEGATIVE); URINE COLOR YELLOW; URINE GLUCOSE (UA) 1+ (NEGATIVE); URINE KETONE NEGATIVE (NEGATIVE); URINE LEUK ESTERASE NEGATIVE (NEGATIVE); URINE NITRITE NEGATIVE (NEGATIVE); URINE PROTEIN TRACE (NEGATIVE); URINE UROBILINOGEN 0.2 mg/dL (0.2-1.0)
[2022-10-07 08:34] VITALS: PULSE 79; RESP 16
[2022-10-07] MEDS: INSULIN SLIDING SCALE (NOVOLOG) 1 VIAL SQ SCH ×2 (08:40→12:18)
[2022-10-07] MEDS ORDERED: ASPIRIN 81 MG CHEWABLE TABLETS ONE (08:54)
[2022-10-07] MEDS ORDERED: HEPARIN NA (PORCINE) 5,000 UNITS/ML 1ML VIAL ONE (08:55)
[2022-10-07] MEDS ORDERED: LEVOTHYROXINE NA 75 MCG TABLET (FP) ONE (08:55)
[2022-10-07] MEDS ORDERED: ENOXAPARIN NA (PORCINE) 40 MG/0.4 ML DISP.SYRIN SQ SCH (10:00)
[2022-10-07] MEDS ORDERED: ASPIRIN 81 MG CHEWABLE TABLETS PO SCH (10:00)
[2022-10-07 13:00] VITALS: BP 139/66; TEMP 98.5
== END 2022-10-07 13:05 | disposition home or self-care (01) ==
LOC: JER 15:39 → JERBED 18:16
PROVIDERS: ADMIT Internal Medicine; ATTEND Internal Medicine
PROC: 3E033GC Introduction of Other Therapeutic Substance into Peripheral Vein, Percutaneous Approach (ICD-10-PCS; principal; 2022-10-06)
PROC: 3E023GC Introduction of Other Therapeutic Substance into Muscle, Percutaneous Approach (ICD-10-PCS; 2022-10-06)
PROC: 3E033VG Introduction of Insulin into Peripheral Vein, Percutaneous Approach (ICD-10-PCS; 2022-10-06)
PROC: 3E0337Z Introduction of Electrolytic and Water Balance Substance into Peripheral Vein, Percutaneous Approach (ICD-10-PCS; 2022-10-06)
DX: N17.9 Acute kidney failure, unspecified (principal); E87.5 Hyperkalemia; R55 Syncope and collapse; E03.9 Hypothyroidism, unspecified; I10 Essential (primary) hypertension; E11.9 Type 2 diabetes mellitus without complications; Z29.8 Encounter for other specified prophylactic measures; Z87.891 Personal history of nicotine dependence; Z91.018 Allergy to other foods; W18.39XA Other fall on same level, initial encounter; Y93.89 Activity, other specified; Y92.002 Bathroom of unspecified non-institutional (private) residence as the place of occurrence of the external cause
CPT/HCPCS: 0241U-QW; 36415; 70450-TC; 80048; 80053; 81003; 82570; 82962; 83690; 83735; 83935; 84100; 84300; 84443; 84484; 85025; 85027; 87040; 87086; 93005; 93010; 96361; 96372; 96374; 96375; 99285-25; G0378; J1644

== ENCOUNTER 2023-10-31 14:27 | Emergency (ER) | payer OTHER ==
[2023-10-31 14:33] VITALS: BP 118/55; PULSE 52; RESP 18; TEMP 97.8; BMI 23.0
[2023-10-31] MEDS ORDERED: DIPHTH,PERTUSS(ACELL),TET 0.5 ML DISP.SYRIN IM ONE (15:01)
[2023-10-31] MEDS: DIPHTH,PERTUSS(ACELL),TET 0.5 ML DISP.SYRIN IM ONE (15:06)
== END 2023-10-31 15:21 | disposition home or self-care (01) ==
LOC: JERFT 14:27
PROC: 3E0234Z Introduction of Serum, Toxoid and Vaccine into Muscle, Percutaneous Approach (ICD-10-PCS; principal; 2023-10-31)
DX: S61.215A Laceration without foreign body of left ring finger without damage to nail, initial encounter (principal); W26.8XXA Contact with other sharp object(s), not elsewhere classified, initial encounter
CPT/HCPCS: 90471; 90715; 99282-25

== ENCOUNTER 2024-04-20 08:49 | Observation (INO) | payer OTHER ==
[2024-04-20] MEDS ORDERED: FAMOTIDINE 20 MG/50 ML IVPB 20 MG/50 ML MG IVPB ONE (09:15)
[2024-04-20] MEDS ORDERED: methylPREDNISolone NA SUCC 125 MG/2 ML VIAL ONE (09:15)
[2024-04-20] MEDS: FAMOTIDINE 20 MG/50 ML IVPB 20 MG/50 ML MG IVPB ONE (09:27)
[2024-04-20] MEDS: methylPREDNISolone NA SUCC 125 MG/2 ML VIAL IVPUSH ONE (09:27)
[2024-04-20] MEDS ORDERED: ANAPHYLAXIS KIT ONE (09:32)
[2024-04-20] MEDS ORDERED: RACEPINEPHRINE IH SOL 2.25% 11.25 MG/0.5 ML VIAL NEB ONE (09:39)
[2024-04-20] MEDS: EPINEPHrine 1:1,000 0.3 MG/0.3 ML SYR IM ONE (09:48)
[2024-04-20 14:43] LABS: BASO % 0.1 % (0-2.0); HEMATOCRIT 39.3 % (35.4-49); HEMOGLOBIN 13.1 GM/dL (11.7-16.9); LYMPH % 9.5 % (8-40); MCH 30.9 pg (25.7-33.7); MCHC 33.2 g/dl (32.0-35.9); MEAN CELL VOLUME 92.9 fl (80-96); MEAN PLT VOLUME 7.7 fl (7.5-11.1); MONO % 0.7 % (3.8-10.2); NEUT % 89.7 % (42.8-82.8); PLATELET COUNT 237 10^3/uL (134-434); RBC 4.24 M/mm3 (4.00-5.60); RDW 14.8 % (11.9-15.9); WHITE BLOOD COUNT 10.8 K/mm3 (4.0-10.0)
[2024-04-20 14:56] LABS: POTASSIUM 4.8 mmol/L (3.5-5.1)
[2024-04-20 14:58] LABS: ALBUMIN 3.9 g/dl (3.4-5.0); BLOOD UREA NITROGEN 18.4 mg/dL (7-18); CALCIUM 9.6 mg/dL (8.5-10.1)
[2024-04-20 15:01] LABS: CREATININE 1.1 mg/dL (0.55-1.3)
[2024-04-20 15:03] LABS: TOT PROT 7.3 g/dl (6.4-8.2)
[2024-04-20 15:14] LABS: BILIRUBIN,TOTAL 1.1 mg/dL (0.2-1)
[2024-04-20] MEDS ORDERED: diphenhydrAMINE HCL 25 MG CAPSULE (FP) PO PRN (16:03)
[2024-04-20 16:48] LABS: HIV INTERPRETATION NEGATIVE (NEGATIVE)
[2024-04-20] MEDS: INSULIN ASPART SLIDING SCALE (NOVOLOG) 1 VIAL SQ SCH (18:02)
[2024-04-20 19:00] VITALS: BMI 21.9
[2024-04-20] MEDS: NEBIVOLOL 5 MG TABLET (FP) PO SCH (21:46)
[2024-04-20] MEDS: predniSONE 20 MG TABLET (UD) PO SCH (21:46)
[2024-04-20] MEDS: FAMOTIDINE 20 MG TABLET PO SCH (21:46)
[2024-04-20] MEDS: ATORVASTATIN CA 10 MG TABLET (FP) PO SCH (21:46)
[2024-04-20] MEDS: MELATONIN 5 MG TABLETS PO PRN (23:15)
[2024-04-21] MEDS: LEVOTHYROXINE NA 75 MCG TABLET (FP) PO SCH (06:38)
[2024-04-21] MEDS ORDERED: diphenhydrAMINE HCL 25 MG CAPSULE (FP) PO PRN (07:39)
[2024-04-21 08:03] LABS: HEMATOCRIT 38.8 % (35.4-49); HEMOGLOBIN 12.6 GM/dL (11.7-16.9); MCH 30.1 pg (25.7-33.7); MCHC 32.4 g/dl (32.0-35.9); MEAN CELL VOLUME 92.9 fl (80-96); MEAN PLT VOLUME 7.6 fl (7.5-11.1); PLATELET COUNT 260 10^3/uL (134-434); RBC 4.18 M/mm3 (4.00-5.60); RDW 14.6 % (11.9-15.9); WHITE BLOOD COUNT 13.3 K/mm3 (4.0-10.0)
[2024-04-21 08:12] LABS: POTASSIUM 4.4 mmol/L (3.5-5.1)
[2024-04-21 08:15] LABS: CALCIUM 9.1 mg/dL (8.5-10.1)
[2024-04-21 08:16] LABS: ALBUMIN 3.7 g/dl (3.4-5.0); BLOOD UREA NITROGEN 25.2 mg/dL (7-18)
[2024-04-21 08:21] LABS: BILIRUBIN,TOTAL 1.4 mg/dL (0.2-1)
[2024-04-21] MEDS ORDERED: ASPIRIN 81 MG CHEWABLE TABLETS PO SCH (10:00)
[2024-04-21] MEDS ORDERED: ASPIRIN COATED 81 MG TABLET.EC PO SCH (10:00)
[2024-04-21] MEDS: predniSONE 20 MG TABLET (UD) PO SCH (11:26)
[2024-04-21] MEDS: ASPIRIN COATED 81 MG TABLET.EC PO SCH (11:27)
[2024-04-21] MEDS: LISINOPRIL 20 MG TABLET PO SCH (11:27)
[2024-04-21] MEDS: ENOXAPARIN NA (PORCINE) 40 MG/0.4 ML DISP.SYRIN SQ SCH (11:28)
[2024-04-21 14:06] VITALS: BP 121/69; PULSE 78; RESP 18; TEMP 98.6
== END 2024-04-21 12:20 | disposition home or self-care (01) ==
LOC: JER 08:49 → JERBED 12:52 → INTOOBSV 12:52 → JERBED 15:24 → J2W 15:24
PROVIDERS: ADMIT Internal Medicine Pulmonary Disease; ATTEND Internal Medicine
PROC: 3E023GC Introduction of Other Therapeutic Substance into Muscle, Percutaneous Approach (ICD-10-PCS; principal; 2024-04-20)
PROC: 3E033GC Introduction of Other Therapeutic Substance into Peripheral Vein, Percutaneous Approach (ICD-10-PCS; 2024-04-20)
DX: T78.3XXA Angioneurotic edema, initial encounter (principal); X58.XXXA Exposure to other specified factors, initial encounter; E11.9 Type 2 diabetes mellitus without complications; I10 Essential (primary) hypertension; Z91.018 Allergy to other foods; Z87.891 Personal history of nicotine dependence; E03.9 Hypothyroidism, unspecified; R82.2 Biliuria; Z90.49 Acquired absence of other specified parts of digestive tract
CPT/HCPCS: 36415; 71046-TC-FY; 80053; 82962; 85025; 85027; 86803; 86850; 86900; 86901; 87389; 96365; 96372; 96375; 99285-25; G0378; J0171